=== PATIENT | female | born 1990 | race Asian ===

== ENCOUNTER 2016-10-04 05:58 | Day surgery (SDC) | payer MEDICAID ==
[2016-10-03 11:08] LABS: BASOPHILS 0.2 % (0.0-2.0); EOSINOPHILS 2.5 % (0-7); HEMATOCRIT 40.5 % (36.0-48.0); HEMOGLOBIN 13.6 g/dL (12-16); IMMATURE GRANULOCYTES 0.2 % (0-5); LYMPHOCYTES 32.8 % (15-50); MCH 29.8 pg (26.0-34.0); MCHC 33.6 g/dL (31.0-37.0); MCV 88.6 fL (80.0-100.0); MEAN PLATELET VOLUME 10.1 fL (7.4-10.4); MONOCYTES 4.7 % (2-11); NEUTROPHILS 59.6 % (40-80); PLATELET COUNT 203 10x3/uL (130-400); RBC 4.57 10x6/uL (4.00-5.40); RDW 12.6 % (11.5-14.5); WBC 8.6 10x3/uL (4.8-10.8)
[~2016-10-04] VITALS: Ht 152.4 cm; Wt 59.0 kg
[~2016-10-04 05:58] MED LIST: IBUPROFEN600 MG PO; PERCOCET 5-3251 TAB PO; PRENATAL COMPLE1 TAB PO
[2016-10-04 06:57] VITALS: BP 90/58; Ht 152.4 cm; Wt 59.0 kg
[2016-10-04 07:04] LABS: HCG URINE NEGATIVE (NEGATIVE)
--- NOTE | 2016-10-04 08:40 | HP ---
PATIENT: LEVAR ONEIL MEDICAL RECORD: [id number] ACCOUNT: [id number] LOCATION:[facility] : 88 ADMISSION DATE: 10/04/16 HISTORY AND PHYSICAL EXAMINATION HISTORY OF PRESENT ILLNESS: This patient is a 26-year-old 3, para 2, AB 1 female who desires sterilization by tubal ligation. PAST MEDICAL HISTORY: DRUG ALLERGIES: None known. CURRENT MEDICATIONS: None. MEDICAL PROBLEMS: Denies heart disease, diabetes, hypertension, kidney problems, or thyroid problems. Her current method of contraception is control pills. FAMILY HISTORY: Noncontributory. PREVIOUS SURGERIES: None, other than breast enlargement. PHYSICAL EXAMINATION: VITAL SIGNS: Weight is 130, blood pressure 104/60. HEENT: Unremarkable. LUNGS: Clear. HEART: Regular rate and rhythm. ABDOMEN: Soft and nontender. PELVIC: Current and deferred for anesthesia. EXTREMITIES: No cyanosis, clubbing or edema. NEUROLOGIC: Grossly intact. IMPRESSION: Undesired fertility. The patient desires laparoscopic tubal ligation. PLAN: Laparoscopic bilateral tubal ligation. Discussed the potential risks of surgery, anesthesia, infection, bleeding, injury to other organs and discussed the possibility of failure of all methods of tubal sterilization. All questions were answered. She desires to proceed with procedure. Spouse was present for discussion. TRANSINT:[id number] Voice Confirmation ID: [id number] DOCUMENT ID: [id number] SHARAD SPENCER MD at 0840 CC: [id number] DICTATION DATE: 10/02/16 1540 FIELD MARKETING LEAD: 10/02/16 1600 [facility] [address] [place] [address]
--- NOTE | 2016-10-04 09:46 | NUR ---
PERIPAD PLACED IN PACU
[2016-10-04] MEDS ORDERED: PERCOCET 5-3251 TAB PO (10:53)
[2016-10-04] MEDS ORDERED: IBUPROFEN600 MG PO (10:54)
--- NOTE | 2016-10-04 13:48 | NUR ---
UNABLE TO VOID YET, WATER GIVEN. SCANT VAGINAL BLEEDING NOTED. SMILING, PLAYING ON CELL PHONE.
--- NOTE | 2016-10-04 14:20 | NUR ---
STATES FEELS GOOD. SCANT VAGINAL BLEEDING NOTED. STATES NOT ABLE TO VOID YET BUT DOES NOT FEEL THE URGE. WILL BLADDER SCAN.
--- NOTE | 2016-10-04 14:45 | NUR ---
BLADDER SCAN SHOWS 232ML IN BLADDER. ENCOURAGED TO DRINK MORE FLUIDS AND AMBULATE IN ROOM, VOICED UNDERSTANDING.
--- NOTE | 2016-10-04 15:29 | NUR ---
UP TO BATHROOM TO TRY AND VOID. WATER ON SINK TURNED ON. WARM WATER PLACED IN A CUP TO POUR OVER PERINEUM TO HELP TO VOID.
--- NOTE | 2016-10-04 15:49 | NUR ---
SPOKE WITH DR MEMBRENO'S NURSE CONCERNING INABILITY TO VOID AT THIS TIME. INFORMED ONLY 230ML IN BLADDER AND DRINKING FLUIDS WELL WITHOUT NAUSEA.
--- NOTE | 2016-10-04 16:10 | NUR ---
VOIDED MODERATE AMOUNT, SUSAN AT DR MEMBRENO'S OFFICE CALLED AND INFORMED, STATES WILL LET DR MEMBRENO KNOW. DISCHARGED HOME VIA WC.
--- NOTE | 2016-10-11 09:57 | OP ---
PATIENT NAME: LEVAR ONEIL MEDICAL RECORD: [id number] :88 [facility]: SURGEON: SHARAD SPENCER MD DATE OF OPERATION: 10/04/2016 PREOPERATIVE DIAGNOSIS: Undesired fertility. POSTOPERATIVE DIAGNOSIS: Undesired fertility. PROCEDURE: Laparoscopic bilateral tubal ligation. ANESTHESIA: General. FINDINGS: Normal pelvic anatomy. ESTIMATED BLOOD LOSS: Minimal. COMPLICATIONS OF SURGERY: None. OPERATIVE NOTE: The patient was taken to the OR and under adequate general anesthesia, prepped and draped in the usual manner for abdominal and vaginal procedures with legs in floating boot Sen stirrups. The anterior lip of the cervix was grasped with tenaculum. Intrauterine manipulator was placed and stabilized. Bladder was catheterized. An elliptical incision was then made at the umbilicus and extended under direct visualization through subcutaneous tissue and fascia. Peritoneum elevated and incised and this incision extended to the limits of the skin incision, avoiding the abdominal organs. Laparoscopic trocar sleeve was then inserted. Abdomen was inflated with gas and a second puncture made in the left lower quadrant under direct visualization. Findings were as listed above. Normal appearing ovaries. Normal appearing tubes and uterus. The left tube identified, followed to its fimbriated end, it was partially obscured by an omental adhesion which was gently teased away from the pelvic sidewall. Both tubes were then ligated near the uterine cornu using Filshie clips times 2 for each tube. Positions were observed to be adequate for complete obstruction of each tube. Pelvis was then irrigated. There was no bleeding. Abdomen was then deflated. All instruments removed. Fascial layer at the umbilicus closed with a single interrupted #1 Vicryl suture. Skin reapproximated with a loop #1 Vicryl subcuticular suture. Dermabond was applied to both incisions. A Steri-Strip dressing applied and the patient went to the recovery area in good condition. TRANSINT:[id number] Voice Confirmation ID: [id number] DOCUMENT ID: [id number] SHARAD SPENCER MD at 0957 CC: [id number] DICTATION DATE: 10/04/16 0936 NURSE CASE MANAGEMENT: 10/04/16 1016 [facility] 10/04/16 [place] [address]
== END 2016-10-04 16:10 | disposition home or self-care (01) ==
LOC: D.OPS 05:58 → D.PAN 05:58 → D.OPS 07:30 → D.PAN 07:30 → D.OPS 08:30
PROVIDERS: Obstetrics & Gynecology
DX: Z30.2 Encounter for sterilization (principal)